=== PATIENT | male | born 1960 | race American Indian/Alaskan Native ===

== ENCOUNTER 2017-02-21 11:00 | Emergency (ER) | payer MEDICARE ==
--- NOTE | 2017-02-21 12:14 | XRay Report ---
LUMBAR SPINE RADIOGRAPHS: INDICATION: Slipped and fell. Lower back tailbone pain. COMPARISON: None similar. FINDINGS: AP and lateral lumbar spine radiographs demonstrate preserved vertebral body stature, alignment and disc heights. Mild degenerative spurring. Demineralized bones. Nonobstructive bowel gas pattern. Normal bilateral SI joints. CONCLUSION: No acute lumbar radiographic abnormality with mild degenerative changes. Thank you for the opportunity to participate in this patient's care.
--- NOTE | 2017-02-21 12:16 | XRay Report ---
SACRUM/COCCYX RADIOGRAPHS INDICATION: Slipped and fell. Lower back tailbone pain. COMPARISON: None similar. FINDINGS: Frontal and lateral views demonstrate grossly intact imaged lower lumbar spine, sacrum, coccyx and included bilateral hips. Mild lower lumbar degenerative spurring. Possible osteopenia. Nonobstructive bowel gas pattern. CONCLUSION: No acute radiographic abnormality, as described. Thank you for the opportunity to participate in this patient's care.
[2017-02-21] MEDS ORDERED: TYLENOL PO ONE (12:37)
--- NOTE | 2017-02-21 12:56 | Emergency Department Report ---
ED Fall HPI - General Chief Complaint: Fall Stated Complaint: FALL/ TAILBONE POSS BROKEN/SEVERE PAIN Time Seen by Provider: 02/21/17 12:32 Source: patient Mode of arrival: Ambulatory - History of Present Illness Initial Comments: Patient here reports that he fell after slipping 3 days ago. He is now having lower back pain and tailbone pain. Pain is 10 out of 10. No radiation of pain to her extremities. Denies any loss of bowel or bladder control. Pain is sharp and achy in. [id number] medication taken without any relief. Denies any urinary burning frequency or urgency. Denies any abdominal or testicular pain. Denies any fever or chills. Denies any blood in urine. She has a history of back surgery and he said he has arthritis all over. MD Complaint: fall Onset/Timin -: days(s) Fall From: standing When Fall Occurred: # days TIN FLIPPER (3 days) Fall Witnessed: yes, by family Place Fall Occurred: home Loss of Consciousness: none Prolonged Down Time?: no Symptoms Prior to Fall: none Location: back, buttocks Severity: severe Severity scale (0 -10): 10 Quality: sharp, aching Context: tripped/slipped Associated Symptoms: denies: headache, neck pain, numbness, weakness, chest paint, shortness of breath, abdominal pain, hematuria, unable to walk, lightheaded, vertigo, confusion - Related Data Home Medications Medication Instructions Recorded Confirmed Last Taken Aspirin [Aspirin TAB] 325 mg PO DAILY 06/03/14 06/03/14 06/03/14 08:00 Carvedilol [Coreg] 25 mg PO BID 06/03/14 06/03/14 06/03/14 08:00 Insulin Aspart [Novolog Flexpen] 4 unit SQ AC 06/03/14 06/03/14 06/03/14 08:00 Insulin Glargine,Hum.rec.anlog 60 - 70 unit SQ QHS 06/03/14 06/03/14 06/02/14 21 :00 [Lantus Solostar] Losartan [Cozaar] 25 mg PO QDAY 06/03/14 06/03/14 06/03/14 08:00 Pravastatin (Nf) [Pravachol] 40 mg PO QHS 06/03/14 06/03/14 06/02/14 21:00 Previous Rx's Medication Instructions Recorded Last Taken Type Cyclobenzaprine [Flexeril 10mg] 10 mg PO TID PRN #10 tablet 06/04/14 Unknown Rx HYDROcodone/APAP 5-325 [[place] 1 each PO Q6HR PRN #10 tablet 06/04/14 Unknown Rx 5-325 mg TAB] Ibuprofen [Motrin] 800 mg PO Q8H PRN #14 tablet 06/04/14 Unknown Rx traMADol [Ultram] 50 mg PO Q6HR PRN #20 tablet 02/21/17 Unknown Rx Allergies Allergy/AdvReac Type Severity Reaction Status Date / Time No Known Allergies Allergy Verified 06/03/14 20:48 ED Review of Systems ROS: Stated complaint: FALL/ TAILBONE POSS BROKEN/SEVERE PAIN Other details as noted in HPI Comment: All other systems reviewed and negative Constitutional: denies: chills, fever Respiratory: no symptoms reported Cardiovascular: denies: chest pain, palpitations, edema, syncope Gastrointestinal: denies: abdominal pain, nausea, vomiting, diarrhea Genitourinary: denies: urgency, dysuria, frequency, hematuria, discharge, testicular pain, testicular mass Musculoskeletal: back pain. denies: joint swelling, arthralgia, myalgia Skin: denies: rash Neurological: denies: headache, weakness, numbness, paresthesias, confusion, abnormal gait, vertigo ED Past Medical Hx - Past Medical History Previous Medical History?: Yes Hx Hypertension: Yes Hx Diabetes: Yes Hx Arthritis: Yes Additional medical history: high cholest - Surgical History Past Surgical History?: Yes Hx Appendectomy: Yes Additional Surgical History: back surgery - Family History Family history: hypertension - Social History Smoking Status: Current Every Day Smoker Substance Use Type: Alcohol - Medications Home Medications: Home Medications Medication Instructions Recorded Confirmed Last Taken Type Aspirin [Aspirin TAB] 325 mg PO DAILY 06/03/14 06/03/14 06/03/14 08:00 History Carvedilol [Coreg] 25 mg PO BID 06/03/14 06/03/14 06/03/14 08:00 History Insulin Aspart [Novolog Flexpen] 4 unit SQ AC 06/03/14 06/03/14 06/03/14 08:00 History Insulin Glargine,Hum.rec.anlog 60 - 70 unit SQ QHS 06/03/14 06/03/14 06/02/14 21 :00 History [Lantus Solostar] Losartan [Cozaar] 25 mg PO QDAY 06/03/14 06/03/14 06/03/14 08:00 History Pravastatin (Nf) [Pravachol] 40 mg PO QHS 06/03/14 06/03/14 06/02/14 21:00 History Cyclobenzaprine [Flexeril 10mg] 10 mg PO TID PRN #10 tablet 06/04/14 Unknown Rx HYDROcodone/APAP 5-325 [[place] 1 each PO Q6HR PRN #10 tablet 06/04/14 Unknown Rx 5-325 mg TAB] Ibuprofen [Motrin] 800 mg PO Q8H PRN #14 tablet 06/04/14 Unknown Rx traMADol [Ultram] 50 mg PO Q6HR PRN #20 tablet 02/21/17 Unknown Rx ED Physical Exam - General Limitations: No Limitations General appearance: alert, in no apparent distress - Head Head exam: Present: atraumatic, normocephalic, normal inspection ED Course Vital Signs 02/21/17 02/21/17 11:29 13:03 Temperature 97.7 F Pulse Rate 59 L Respiratory 18 18 Rate Blood Pressure 107/70 O2 Sat by Pulse 100 Oximetry - Reevaluation(s) Reevaluation #1: 02/21/17 13:48 Given Tylenol 650 mg in emergency room for pain. ED Medical Decision Making - Medical Decision Making ED Course: And status post fall with lower back pain and pain to the sacral area. He was given Tylenol 600 mg by mouth in emergency room which relieved his pain. She had lumbar and sacral x-ray which were negative for any acute findings. Discussed this with patient and told him that if he continues to have pain he'll need to follow-up with orthopedic doctor. He reports understanding and he was discharged home with prescription for Ultram. Critical care attestation.: If time is entered above; I have spent that time in minutes in the direct care of this critically ill patient, excluding procedure time. ED Disposition Clinical Impression: Back pain, lumbosacral, Coccyx pain Degenerative disc disease Qualifiers: Spinal region: lumbosacral Qualified Code(s): M51.37 - Other intervertebral disc degeneration, lumbosacral region Accidental fall Qualifiers: Encounter type: initial encounter Qualified Code(s): W19.XXXA - Unspecified fall, initial encounter Disposition: DISCHARGED TO HOME OR SELFCARE Is pt being admited?: No Does the pt Need Aspirin: No Condition: Stable Instructions: Back Pain (ED), Coccyx Injury (ED), Fall Prevention (ED) Prescriptions: traMADol [Ultram] 50 mg PO Q6HR PRN #20 tablet PRN Reason: Pain Referrals: PRIMARY CARE, [Primary Care Provider] - 3-5 Days Forms: Work/School Release Form(ED)
[2017-02-21 14:02] VITALS: BP 126/73
== END 2017-02-21 14:03 | disposition home or self-care (01) ==
LOC: ED 11:00
DX: M54.5 Low back pain (principal); M53.3 Sacrococcygeal disorders, not elsewhere classified; M51.37 Other intervertebral disc degeneration, lumbosacral region; I10 Essential (primary) hypertension; E11.9 Type 2 diabetes mellitus without complications; M19.90 Unspecified osteoarthritis, unspecified site; E78.00 Pure hypercholesterolemia, unspecified; F17.200 Nicotine dependence, unspecified, uncomplicated; Z79.82 Long term (current) use of aspirin; W01.0XXA Fall on same level from slipping, tripping and stumbling without subsequent striking against object, initial encounter; Y93.89 Activity, other specified; Y92.89 Other specified places as the place of occurrence of the external cause; Y99.8 Other external cause status
CPT/HCPCS: 72100; 72220

== ENCOUNTER 2018-02-07 11:19 | Emergency (ER) | payer MEDICARE ==
--- NOTE | 2018-02-07 12:27 | XRay Report ---
LEFT SHOULDER RADIOGRAPHS INDICATION: Pain. COMPARISON: None similar. FINDINGS: Frontal and Y views of the left shoulder, 3 projections demonstrate normal humeral head contour, well positioned against the glenoid. Normal acromioclavicular joint. Preserved scapular contour. Normal visualized soft tissues, left ribs and lung. Possible osteopenia. CONCLUSION: No acute left shoulder radiographic abnormality, as described. Thank you for the opportunity to participate in this patient's care.
[2018-02-07] MEDS ORDERED: TORADOL IM ONE (13:48)
--- NOTE | 2018-02-07 13:52 | Emergency Department Report ---
ED Upper Extremity Inj HPI - General Chief Complaint: Extremity Injury, Upper Stated Complaint: LEFT SHOULDER INJURY Time Seen by Provider: 02/07/18 13:12 Source: patient Mode of arrival: Ambulatory Limitations: No Limitations - History of Present Illness Initial Comments: This is a 57-year-old male nontoxic, well nourished in appearance, no acute signs of distress presents to the ED with c/o of left shoulder pain x1 day. Patient stated he was closing the door and developed sharp pain radiating to left hand. Patient denies any direct trauma. Patient denies any numbness, tingling, fever, chills, headache, nausea, vomiting, chest pain, shortness of breathe, abdominal pain. Patient denies absent ROM. Patient denies any allergies or PMH. MD Complaint: Injury to:: left, shoulder -: days(s) (1) Other Extremity Injury: Shoulder: Left Other Injuries: none Place: outdoors Severity scale (0 -10): 8 Improves With: immobilization, rest Worsens With: movement of extremity Associated Symptoms: denies other symptoms. denies: weakness, numbness, neck pain, suspects foreign body, nausea/vomiting, heard/felt popping sensat - Related Data Home Medications Medication Instructions Recorded Confirmed Last Taken Aspirin [Aspirin TAB] 325 mg PO DAILY 06/03/14 06/03/14 06/03/14 08:00 Carvedilol [Coreg] 25 mg PO BID 06/03/14 06/03/14 06/03/14 08:00 Insulin Aspart [Novolog Flexpen] 4 unit SQ AC 06/03/14 06/03/14 06/03/14 08:00 Insulin Glargine,Hum.rec.anlog 60 - 70 unit SQ QHS 06/03/14 06/03/14 06/02/14 21 :00 [Lantus Solostar] Losartan [Cozaar] 25 mg PO QDAY 06/03/14 06/03/14 06/03/14 08:00 Pravastatin [Pravachol] 40 mg PO QHS 06/03/14 06/03/14 06/02/14 21:00 Previous Rx's Medication Instructions Recorded Last Taken Type Cyclobenzaprine [Flexeril 10mg] 10 mg PO TID PRN #10 tablet 06/04/14 Unknown Rx HYDROcodone/APAP 5-325 [[place] 1 each PO Q6HR PRN #10 tablet 06/04/14 Unknown Rx 5-325 mg TAB] Ibuprofen [Motrin] 800 mg PO Q8H PRN #14 tablet 06/04/14 Unknown Rx traMADol [Ultram] 50 mg PO Q6HR PRN #20 tablet 02/21/17 Unknown Rx Cyclobenzaprine [Flexeril] 10 mg PO QHS PRN #7 tablet 02/07/18 Unknown Rx Ibuprofen [Motrin] 600 mg PO Q8H PRN #30 tablet 02/07/18 Unknown Rx Allergies Allergy/AdvReac Type Severity Reaction Status Date / Time No Known Allergies Allergy Verified 02/07/18 11:41 ED Review of Systems ROS: Stated complaint: LEFT SHOULDER INJURY Other details as noted in HPI Constitutional: denies: chills, fever Eyes: denies: eye pain, eye discharge, vision change ENT: denies: ear pain, throat pain Respiratory: denies: cough, shortness of breath, wheezing Cardiovascular: denies: chest pain, palpitations Endocrine: no symptoms reported Gastrointestinal: denies: abdominal pain, nausea, diarrhea Genitourinary: denies: urgency, dysuria Musculoskeletal: arthralgia. denies: back pain, joint swelling Skin: denies: rash, lesions Neurological: denies: headache, weakness, paresthesias Psychiatric: denies: anxiety, depression Hematological/Lymphatic: denies: easy bleeding, easy bruising ED Past Medical Hx - Past Medical History Hx Hypertension: Yes Hx Diabetes: Yes Hx Arthritis: Yes Additional medical history: high cholest - Surgical History Hx Appendectomy: Yes Additional Surgical History: back surgery - Social History Smoking Status: Current Every Day Smoker Substance Use Type: Alcohol - Medications Home Medications: Home Medications Medication Instructions Recorded Confirmed Last Taken Type Aspirin [Aspirin TAB] 325 mg PO DAILY 06/03/14 06/03/14 06/03/14 08:00 History Carvedilol [Coreg] 25 mg PO BID 06/03/14 06/03/14 06/03/14 08:00 History Insulin Aspart [Novolog Flexpen] 4 unit SQ AC 06/03/14 06/03/14 06/03/14 08:00 History Insulin Glargine,Hum.rec.anlog 60 - 70 unit SQ QHS 06/03/14 06/03/14 06/02/14 21 :00 History [Lantus Solostar] Losartan [Cozaar] 25 mg PO QDAY 06/03/14 06/03/14 06/03/14 08:00 History Pravastatin [Pravachol] 40 mg PO QHS 06/03/14 06/03/14 06/02/14 21:00 History Cyclobenzaprine [Flexeril 10mg] 10 mg PO TID PRN #10 tablet 06/04/14 Unknown Rx HYDROcodone/APAP 5-325 [[place] 1 each PO Q6HR PRN #10 tablet 06/04/14 Unknown Rx 5-325 mg TAB] Ibuprofen [Motrin] 800 mg PO Q8H PRN #14 tablet 06/04/14 Unknown Rx traMADol [Ultram] 50 mg PO Q6HR PRN #20 tablet 02/21/17 Unknown Rx Cyclobenzaprine [Flexeril] 10 mg PO QHS PRN #7 tablet 02/07/18 Unknown Rx Ibuprofen [Motrin] 600 mg PO Q8H PRN #30 tablet 02/07/18 Unknown Rx ED Physical Exam - General Limitations: No Limitations General appearance: alert, in no apparent distress - Head Head exam: Present: atraumatic, normocephalic - Eye Eye exam: Present: normal appearance Pupils: Present: normal accommodation - ENT ENT exam: Present: normal exam, mucous membranes moist - Neck Neck exam: Present: normal inspection, full ROM. Absent: tenderness, meningismus - Respiratory Respiratory exam: Present: normal lung sounds bilaterally. Absent: respiratory distress, wheezes, rales, rhonchi, stridor - Cardiovascular Cardiovascular Exam: Present: regular rate, normal rhythm, normal heart sounds. Absent: bradycardia, tachycardia, irregular rhythm, systolic murmur, diastolic murmur, rubs, gallop - GI/Abdominal GI/Abdominal exam: Present: soft, normal bowel sounds - Rectal Rectal exam: Present: deferred - Extremities Exam Extremities exam: Present: normal inspection, full ROM, tenderness (deltoid region), normal capillary refill. Absent: joint swelling - Expanded Upper Extremity Exam Left General: Present: normal inspection Shoulder Exam: Present: normal inspection, full ROM, tenderness (deltoid region) . Absent: swelling, abrasion, laceration, ecchymosis, deformity, crepidus, dislocation, erythema, tenderness over AC joint Upper Arm exam: Present: normal inspection, full ROM Elbow exam: Present: normal inspection, full ROM Forearm Wrist exam: Present: normal inspection, full ROM Hand Wrist exam: Present: normal inspection, full ROM Neuro motor exam: Present: wrist extension intact, thumb opposition intact, thumb IP flexion intact, thumb adduction intact, fingers 2-5 abduction intact Neurosensory exam: Present: 2-point discrimination, radial nerve intact, ulnar nerve intact, median nerve intact Vascular: Present: vascular compromise, normal capillary refill, radial pulse, brachial pulse, ulnar pulse - Back Exam Back exam: Present: normal inspection, full ROM, paraspinal tenderness (left cervical region). Absent: tenderness, CVA tenderness (R), CVA tenderness (L), muscle spasm, vertebral tenderness, rash noted - Neurological Exam Neurological exam: Present: alert, oriented X3, normal gait - Psychiatric Psychiatric exam: Present: normal affect, normal mood - Skin Skin exam: Present: warm, dry, intact, normal color. Absent: rash ED Course Vital Signs 02/07/18 11:42 Temperature 99.2 F Pulse Rate 78 Respiratory 18 Rate Blood Pressure 110/61 O2 Sat by Pulse 100 Oximetry - Reevaluation(s) Reevaluation #1: 02/07/18 13:53 Patient is speaking in full sentences with no signs of distress noted. ED Medical Decision Making - Medical Decision Making This 57-year-old male that presents with left shoulder strain. Patient is stable and was examined by me. X-ray within normal limits and dictated by the radiologist. Patient is notified of the x-ray report with no questionable condition. Patient did receive Toradol in the ED [facility] because symptoms have resolved subsided. There is no signs or symptoms of bursitis. Patient is discharged with Flexeril and Motrin. He was instructed to rice therapy. Patient received a shoulder immobilizer. Patient was referred to Follow-up with a orthopedic doctor in 3-5 days or if symptoms worsen and continue return to emergency room as soon as possible. At time of discharge, the patient does not seem toxic or ill in appearance. No acute signs of distress noted. Patient agrees to discharge treatment plan of care. No further questions noted by the patient. Critical care attestation.: If time is entered above; I have spent that time in minutes in the direct care of this critically ill patient, excluding procedure time. ED Disposition Clinical Impression: Left shoulder strain Qualifiers: Encounter type: initial encounter Qualified Code(s): S46.912A - Strain of unspecified muscle, fascia and tendon at shoulder and upper arm level, left arm , initial encounter Disposition: TO HOME OR SELFCARE Is pt being admited?: No Does the pt Need Aspirin: No Condition: Stable Instructions: Rotator Cuff Injury (ED), RICE Therapy (ED), Ibuprofen (By mouth) , Cyclobenzaprine (By mouth) Additional Instructions: Follow-up with a orthopedic doctor in 3-5 days or if symptoms worsen and continue return to emergency room as soon as possible. Prescriptions: Cyclobenzaprine [Flexeril] 10 mg PO QHS PRN #7 tablet PRN Reason: Muscle Spasm Ibuprofen [Motrin] 600 mg PO Q8H PRN #30 tablet PRN Reason: Pain Referrals: PRIMARY CARE, [Referring] - 3-5 Days LOUIS CARTY MD [Staff Physician] - 3-5 Days [facility] [Outside] - 3-5 Days [facility] [Outside] - 3-5 Days Forms: Work/School Release Form(ED)
[2018-02-07 14:17] VITALS: BP 118/72
== END 2018-02-07 14:16 | disposition home or self-care (01) ==
LOC: ED 11:19
DX: S46.912A Strain of unspecified muscle, fascia and tendon at shoulder and upper arm level, left arm, initial encounter (principal); I10 Essential (primary) hypertension; E11.9 Type 2 diabetes mellitus without complications; F17.200 Nicotine dependence, unspecified, uncomplicated; X58.XXXA Exposure to other specified factors, initial encounter; Y93.89 Activity, other specified; Y92.89 Other specified places as the place of occurrence of the external cause; Y99.8 Other external cause status
CPT/HCPCS: 29105; 73030; 96372; 99283; J1885

== ENCOUNTER 2022-03-07 15:28 | Emergency (ER) | payer MEDICARE ==
[2022-03-07 16:54] VITALS: BP 113/74
[2022-03-07] MEDS ORDERED: CLINDAMYCIN 150 MG CAP PO ONE (23:20)
[2022-03-07] MEDS ORDERED: LIDOCAINE (1%) 10 MG/1 ML VIAL 20 ML MDV INFILTRATI ONE (23:20)
[2022-03-07] MEDS ORDERED: oxyCODONE /ACETAMINOPHEN 5-325MG TAB PO ONE (23:20)
[2022-03-07] MEDS ORDERED: ONDANSETRON 4 MG ODT TAB PO ONE (23:20)
[2022-03-08] MEDS ORDERED: diphenhydrAMINE 25 MG CAP PO ONE (01:57)
--- NOTE | 2022-03-08 02:02 | Emergency Department Report ---
ED Extremity Problem HPI - General Chief complaint: Extremity Injury, Upper Stated complaint: LEFT FINGER SWELLING Source: patient Mode of arrival: Ambulatory Limitations: No Limitations - History of Present Illness Initial comments: Patient is a 61-year-old -Maced[place] male with a history of hypertension, [id number] diabetes, ESRD on peritoneal dialysis, hyperlipidemia and chronic osteoarthritis who presented to the ED with complaint of acute onset right index finger pain and swelling due to erythematous maculopapular rash with fluctuance for the last 2 weeks after he developed a small puncture wound after hitting his hand against a sharp object. Patient states that the small puncture wound got infected but he did not do anything about it and that in the last 1 week, the pain and swelling have worsened especially in the last 2 days. Patient denies fever, chills, numbness and tingling or weakness of right hand or right index finger, dizziness, syncope, chest pain or shortness of breath. MD Complaint: extremity pain (left index finger pain, swelling and fluctuant rash), extremity swelling (Swollen left index finger due to erythematous maculopapular rash) -: Sudden, week(s) (2) Location: upper extremity (Left hand and left index finger) History of Same: No -: Yes myalgia, No arthralgia, No fever, No associated chest pain Radiation: proximal, distal Severity scale (0 -10): 8 Quality: aching, sharp Consistency: constant Improves with: nothing Worsens with: nothing Associated Symptoms: denies other symptoms, rash (Swollen, painful right index finger due to erythematous maculopapular fluctuant rash). denies: chest pain, shortness of breath, fever, myalgias, arthralgias - Related Data Home Medications Medication Instructions Recorded Confirmed Last Taken Aspirin 325 mg PO DAILY 06/03/14 06/03/14 06/03/14 08:00 Insulin Aspart (Nf) [Novolog 4 unit SQ AC 06/03/14 06/03/14 06/03/14 08:00 Flexpen] Insulin Glargine,Hum.rec.anlog 60 - 70 unit SQ QHS 06/03/14 06/03/14 06/02/14 21:00 [Lantus Solostar] Losartan [Cozaar] 25 mg PO QDAY 06/03/14 06/03/14 06/03/14 08:00 Pravastatin [Pravachol] 40 mg PO QHS 06/03/14 06/03/14 06/02/14 21:00 carvediloL [Coreg] 25 mg PO BID 06/03/14 06/03/14 06/03/14 08:00 Previous Rx's Medication Instructions Recorded Last Taken Type Cyclobenzaprine [Flexeril 10mg] 10 mg PO TID PRN #10 tablet 06/04/14 Unknown Rx HYDROcodone/APAP 5-325 [[place] 1 each PO Q6HR PRN #10 tablet 06/04/14 Unknown Rx 5-325 mg TAB] Ibuprofen [Motrin] 800 mg PO Q8H PRN #14 tablet 06/04/14 Unknown Rx traMADoL [Ultram] 50 mg PO Q6HR PRN #20 tablet 02/21/17 Unknown Rx Cyclobenzaprine [Flexeril] 10 mg PO QHS PRN #7 tablet 02/07/18 Unknown Rx Clindamycin [Clindamycin CAP] 300 mg PO Q8H #30 cap 03/08/22 Unknown Rx Ibuprofen [Motrin 600 MG tab] 600 mg PO Q8H PRN #30 tablet 03/08/22 Unknown Rx Mupirocin [Bactroban 2% OINT] 1 applic TP TID #1 tube 03/08/22 Unknown Rx traMADoL [Ultram] 50 mg PO Q6HR PRN #12 tablet 03/08/22 Unknown Rx Allergies Allergy/AdvReac Type Severity Reaction Status Date / Time No Known Allergies Allergy Verified 02/07/18 11:41 ED Review of Systems ROS: Stated complaint: LEFT FINGER SWELLING Other details as noted in HPI Constitutional: denies: chills, fever Eyes: denies: eye pain, eye discharge, vision change ENT: denies: ear pain, throat pain Respiratory: denies: cough, shortness of breath, wheezing Cardiovascular: denies: chest pain, palpitations Endocrine: no symptoms reported Gastrointestinal: denies: abdominal pain, nausea, vomiting, diarrhea Genitourinary: denies: urgency, dysuria Musculoskeletal: joint swelling, arthralgia (Left index finger pain and swelling due to erythematous maculopapular rash). denies: back pain Skin: rash (Swelling, painful, erythematous maculopapular fluctuant rash on left index finger). denies: lesions Neurological: denies: headache, weakness, paresthesias Psychiatric: denies: anxiety, depression Hematological/Lymphatic: denies: easy bleeding, easy bruising ED Past Medical Hx - Past Medical History Hx Hypertension: Yes Hx CVA: Yes Hx Diabetes: Yes Hx Renal Disease: Yes (home dialysis) Hx Arthritis: Yes Additional medical history: high cholest - Surgical History Hx Appendectomy: Yes Additional Surgical History: back surgery - Social History Smoking Status: Current Every Day Smoker Substance Use Type: Alcohol - Medications Home Medications: Home Medications Medication Instructions Recorded Confirmed Last Taken Type Aspirin 325 mg PO DAILY 06/03/14 06/03/14 06/03/14 08:00 History Insulin Aspart (Nf) [Novolog 4 unit SQ AC 06/03/14 06/03/14 06/03/14 08:00 Hist francois Morgan] Insulin Glargine,Hum.rec.anlog 60 - 70 unit SQ QHS 06/03/14 06/03/14 06/02/14 21:00 History [Lantus Solostar] Losartan [Cozaar] 25 mg PO QDAY 06/03/14 06/03/14 06/03/14 08:00 History Pravastatin [Pravachol] 40 mg PO QHS 06/03/14 06/03/14 06/02/14 21:00 History carvediloL [Coreg] 25 mg PO BID 06/03/14 06/03/14 06/03/14 08:00 History Cyclobenzaprine [Flexeril 10mg] 10 mg PO TID PRN #10 tablet 06/04/14 Unknown Rx HYDROcodone/APAP 5-325 [[place] 1 each PO Q6HR PRN #10 tablet 06/04/14 Unknown Rx 5-325 mg TAB] Ibuprofen [Motrin] 800 mg PO Q8H PRN #14 tablet 06/04/14 Unknown Rx traMADoL [Ultram] 50 mg PO Q6HR PRN #20 tablet 02/21/17 Unknown Rx Cyclobenzaprine [Flexeril] 10 mg PO QHS PRN #7 tablet 02/07/18 Unknown Rx Clindamycin [Clindamycin CAP] 300 mg PO Q8H #30 cap 03/08/22 Unknown Rx Ibuprofen [Motrin 600 MG tab] 600 mg PO Q8H PRN #30 tablet 03/08/22 Unknown Rx Mupirocin [Bactroban 2% OINT] 1 applic TP TID #1 tube 03/08/22 Unknown Rx traMADoL [Ultram] 50 mg PO Q6HR PRN #12 tablet 03/08/22 Unknown Rx ED Physical Exam - General Limitations: No Limitations General appearance: alert, in no apparent distress - Head Head exam: Present: atraumatic, normocephalic, normal inspection - Eye Eye exam: Present: normal appearance, PERRL, EOMI Pupils: Present: normal accommodation - ENT ENT exam: Present: normal exam, normal orophraynx, mucous membranes moist, TM's normal bilaterally, normal external ear exam - Neck Neck exam: Present: normal inspection, full ROM. Absent: tenderness - Respiratory Respiratory exam: Present: normal lung sounds bilaterally. Absent: respiratory distress, wheezes, rales, stridor, chest wall tenderness, accessory muscle use, decreased breath sounds, prolonged expiratory - Cardiovascular Cardiovascular Exam: Present: regular rate, normal rhythm, normal heart sounds. Absent: systolic murmur, diastolic murmur, rubs, gallop - GI/Abdominal GI/Abdominal exam: Present: soft, normal bowel sounds. Absent: tenderness, guarding, rebound, hyperactive bowel sounds, hypoactive bowel sounds, organomegaly - Extremities Exam Extremities exam: Present: normal inspection, full ROM, tenderness (Palpable tenderness of left index finger due to erythematous maculopapular fluctuant rash), normal capillary refill. Absent: pedal edema, joint swelling, calf tenderness - Back Exam Back exam: Present: normal inspection, full ROM. Absent: tenderness, CVA tenderness (R), CVA tenderness (L), muscle spasm, paraspinal tenderness - Neurological Exam Neurological exam: Present: alert, oriented X3, CN II-XII intact, normal gait, reflexes normal - Psychiatric Psychiatric exam: Present: normal affect, normal mood - Skin Skin exam: Present: warm, dry, intact, rash (Swollen, mild erythematous maculopapular rash on distal and proximal left index finger with fluctuance), erythema. Absent: normal color, urticaria, pallor, abrasion ED Course Vital Signs 03/07/22 16:50 Temperature 98.7 F Pulse Rate 86 Respiratory 18 Rate Blood Pressure 113/74 [Left] O2 Sat by Pulse 99 Oximetry - I & D Left Medial Finger Type of Procedure: Simple Site: Left medial and distal index finger Blade Size: 11 I & D Procedure: betadine prep, sterile drapes applied, sterile dressing applied, gauze wick placed Progress: The area was cleaned with normal saline and Betadine solutions. Lidocaine 1% solution was infiltrated around the area for local anesthesia. When anesthesia was fully achieved, the wound was incised with a scalpel blade #11 and copious purulent discharge drained from the wound. The wound was then debrided extensively with normal saline and dressed appropriately. Patient tolerated procedure well. ED Medical Decision Making - Medical Decision Making This is a 61-year-old -[place] male with a history of hypertension, [id number] diabetes, ESRD on peritoneal dialysis, hyperlipidemia and chronic osteoarthritis who presented to the ED with complaint of acute onset right index finger pain and swelling due to erythematous maculopapular rash with fluctuance for the last 2 weeks after he developed a small puncture wound after hitting his hand against a sharp object. Patient states that the small puncture wound got infected but he did not do anything about it and that in the last 1 week, the pain and swelling have worsened especially in the last 2 days. In the ED, patient is alert and oriented x3 and is not in any distress. Patient is hemodynamically stable. Patient was treated for pain in the ED and also received initial oral antibiotics. The swelling left index finger rash was incised and drained per protocol after application of lidocaine 1% solution for anesthesia. The swollen rash was incised with scalpel blade #11 and copious thick purulent discharge drained from the wound. The wound was extensively debrided with normal saline and dressed appropriately with 4 x 4 gauze. Patient tolerated procedure well. Patient was discharged home on medications for pain and antibiotics and advised to follow-up with his primary care physician in 7 to 10 days for reevaluation or return to the ED immediately if symptoms get worse. - Differential Diagnosis Cellulitis; paronychia; puncture wound Critical care attestation.: If time is entered above; I have spent that time in minutes in the direct care of this critically ill patient, excluding procedure time. ED Disposition Clinical Impression: Paronychia of left index finger, Cellulitis of left index finger Disposition: HOME / SELF CARE / HOMELESS Is pt being admited?: No Does the pt Need Aspirin: No Condition: Stable Instructions: Paronychia, [id number], Cellulitis, Adult, [id number] Additional Instructions: Take medication with food, drink plenty of fluids and follow-up with your primary care physician in 7 to 10 days for reevaluation. Return to the ED immediately if symptoms get worse. Prescriptions: Mupirocin [Bactroban 2% OINT] 1 applic TP TID #1 tube Clindamycin [Clindamycin CAP] 300 mg PO Q8H #30 cap Ibuprofen [Motrin 600 MG tab] 600 mg PO Q8H PRN #30 tablet PRN Reason: Pain traMADoL [Ultram] 50 mg PO Q6HR PRN #12 tablet PRN Reason: Pain Referrals: [facility] [Provider Group] - 3-5 Days Time of Disposition: 02:04 Print Language: MAURITANIAN
== END 2022-03-08 02:41 | disposition home or self-care (01) ==
LOC: ED 15:28
DX: L03.012 Cellulitis of left finger (principal); I10 Essential (primary) hypertension; E11.9 Type 2 diabetes mellitus without complications; M19.90 Unspecified osteoarthritis, unspecified site; F17.200 Nicotine dependence, unspecified, uncomplicated; Z72.89 Other problems related to lifestyle; Z79.899 Other long term (current) drug therapy; Z79.82 Long term (current) use of aspirin
CPT/HCPCS: 99282; J3490; Q0162